=== PATIENT | female | born 1945 | race Caucasian/White ===

== ENCOUNTER → 2017-03-03 | Outpatient (CLI) | payer MEDICARE ==
[~2017-03-03] MED LIST: B COMPLETE1 EACH PO; CALCIUM + D3 E1 EACH PO; METAMUCIL SF P3.4 GM PO; METOPROLOL TART25 MG PO; NORCO 5-325 TA1 EACH PO; PRILOSEC DPS20 MG PO; PROBIOTIC1 EAC1 PO; PROLIA60 MG/ML PO; THERA1 EACH PO; TYLENOL DPS325 MG PO; XANAX DPS0.5 MG PO; ZOCOR DPS40 MG PO
== END | disposition home or self-care (01) ==
LOC: PTH.S 08:34
DX: Z01.818 Encounter for other preprocedural examination (principal)

== ENCOUNTER 2017-03-08 07:10 | Inpatient (IN) | payer MEDICARE ==
[~2017-03-08] VITALS: Ht 152.4 cm; Wt 62.9 kg
--- NOTE | ~2017-03-08 | OR ---
ADMIT: 03/08/2017 RM/LOC: 312 [facility] MR#: [id number] [facility]#: [id number] [address] [address] JAMILA DAILY [address] [place] [address] Operative/Delivery Room Report SEX: F AGE: 71 : 1945 SURGERY DATE: 03/08/2017 SURGEON: Clint Welch MD PREOPERATIVE DIAGNOSIS: Right colon cancer. POSTOPERATIVE DIAGNOSIS: Right colon cancer. FINAL PATHOLOGY: Pending. PROCEDURE: Laparoscopic right hemicolectomy. POCKET FLAP CREASING MACHINE OPERATOR: DANNA Patrick. ANESTHESIA: General endotracheal tube anesthesia. ESTIMATED BLOOD LOSS: 100 mL or less. INDICATION FOR PROCEDURE: Please see H and P. DESCRIPTION OF PROCEDURE: After the risks, benefits, possible complications, and the alternatives have been explained, and informed consent had been obtained, the patient was taken back to the operating room. Underwent general endotracheal tube anesthesia, and the surgical field was prepped and draped in a sterile manner. A supraumbilical incision was made. The Veress needle was inserted. The abdomen was insufflated with CO2. Once there was adequate insufflation, a 5 mm port was placed. The camera was placed through this port site. Under direct visualization, I placed a 5 mm lower midline and another upper midline port and a 12 mm left-sided port. Slowly raised up the ileocolic vessel, made a window there, identified the duodenum. Originally I did not take that. I went in, a lot of omentum, just kind of hard to get that , but I was stuck up kind to the liver from her previous lap aarti but I was able to free that up around the hepatic flexure. I took that down and went then down below and started working the cecum up. The small bowel was kind of stuck from previous appendectomy down into the right lower quadrant, I had to free that up kind of sharply. Once I had that freed up, her mesentery was just kind of friable, it wanted to tear just raising it, but had a nice window. I identified duodenum nicely. Took the ileocolic vessel with an Endo AUDI stapler. Once I felt I had everything adequately freed up from the lateral attachments for the right colon, came to the midline and medially enough stuff freed up. I went ahead and grasped it. I made a midline incision between my upper two 5 mm ports. Wound protector was placed. Brought the specimen up, and just in that same process just bringing it up into the incision without significant tension, it wanted to tear the mesentery there and so I clamped, divided, and ligated some of the small bowel mesentery. I went back a little further than I had planned, but it had a good palpable pulse coming up there. Divided the small bowel with the AUDI stapler 75. I chose an area in the transverse colon as well. I could feel a nice palpable pulse coming up the colon and divided some mesentery between clamps, tied, and then AUDI across the ADMIT: 03/08/2017 RM/LOC: 312 [facility] MR#: [id number] [address] [place] [id number] [place] [address] Operative/Delivery Room Report SEX: F AGE: 71 : 1945 transverse colon. Then created a [id number] stapled anastomosis of the distal small bowel to the transverse colon. Closed it off with a AUDI 75 stapler. Changed gloves, reinforced the crotch using the anastomosis and the suture lines with some 3-0 silk sutures, returned it to the abdominal cavity. We inspected things there with my open incision, looked around. I did not see a significant amount of blood or anything. I closed the fascia with a running 1 PDS, one superiorly and one inferiorly tying in the middle. Re-insufflated the abdomen and inspected. Suctioned and cleaned out some old blood. Irrigated. Did not see any signs of any other significant bleeding. There was a little more oozing in some spots, but I washed it for quite a while. I did not see anything that I was worried about welling up anywhere as far as blood. I injected 0.5% Marcaine for pain control. I closed the fascia of left-sided port with an 0-Polysorb suture using the suture passer. All the other ports were removed. The skin was all closed with freeman. She tolerated it well. She was extubated and taken to recovery room in stable and satisfactory condition. Clint Welch MD/ abiel JOB #: [id number] CC: Clint Welch, Attending Physician Caity Sheppard, Family Physician . [facility]
--- NOTE | ~2017-03-08 | ECH ---
Transthoracic Echocardiography Report (TTE) Demographics Patient Name JAMILA DAILY Date of Study 03/10/2017 Patient Number [id number] Visit Number [id number] Date of 1945 Room Number 420 Accession Number [id number] Gender Female Age 71 year(s) Referring King Favio Carbajal MD Wigs Salesperson Devika Bustos [facility] Physician Physician Interpreting Mary Grace Freitas [employer] Manager Physician MD Supervising Ordering Physician King Favio Carbajal MD, MD/P Nurse Stress Analyst [employer] Conclusions Summary Technically fair exam. The estimated left ventricular ejection fraction is 60%. Normal chamber sizes and function. Procedure Type of Study TTE procedure:Echo Complete SF. Procedure Date Date: 03/10/2017 Start: 03:31 PM Technical Quality: Fair due to poor acoustical window. Indications:Tachycardia. Appropriate Use Criteria: 9 Height: 60 inches Weight: 146 pounds BSA: 1.63 m Rhythm: Within normal limits HR: 83 bpm BP: 166/76 mmHg M-Mode/2D Measurements LV Diastolic Dimension: 4.41 cm LV Systolic Dimension: 3.72 cm LV Septum Diastolic: 0.85 cm LV PW Diastolic: 0.85 cm AO Root Dimension: 2.96 cm Cardiac Output: 2.69 l/min LA Dimension: 2.98 cm Cardiac Index: 1.65 l/min*m LA volume index: 27 ml/m LVOT: 1.57 cm RV Base: 2.3 cm LVOT VTI: 16.76 cm RV Mid: 1.5 cm LV Stroke volume: 32.43 ml RV Length: 6 cm LV Stroke volume index: 19.9 ml/m Doppler Measurements AV Mean Gradient: 3.93 mmHg MV Peak E-Wave: 0.67 m/s LVOT Peak Velocity: 0.81 m/s MV Peak A-Wave: 1.04 m/s AV Area (Continuity):1.21 cm MV P1/2t: 66.1 msec TR Velocity:1.36 m/s TR Gradient:7.42 mmHg MV Deceleration Time: 223.8 msec Estimated RAP:3 mmHg MV Area (PHT): 3.33 cm Estimated RVSP: 10 mmHg PV Peak Velocity: 0.91 m/s PV Peak Gradient: 3.3 mmHg Estimated PASP: 10.42 mmHg RA Area: 9.68 cm Findings Left Ventricle The left ventricle is normal in size . Right Ventricle Normal right ventricle structure and function. Left Atrium Normal left atrial size. Right Atrium Normal right atrial size. Mitral Valve Normal mitral valve structure and function. Aortic Valve The aortic valve was not well imaged. Tricuspid Valve Normal tricuspid valve structure and function. Trivial tricuspid regurgitation by color Doppler. Pulmonic Valve The pulmonic valve is not well visualized. Pericardial Effusion No evidence of pericardial effusion. Miscellaneous Visualized portions of the aortic root and ascending aorta appear normal in size. Pleural Effusion No evidence of pleural effusion. Signature
[2017-03-11] MEDS ORDERED: PROBIOTIC1 EAC1 PO (21:01)
[2017-03-11] MEDS ORDERED: ZOCOR DPS40 MG PO (21:01)
[2017-03-11] MEDS ORDERED: XANAX DPS0.5 MG PO (21:01)
[2017-03-11] MEDS ORDERED: CALCIUM + D3 E1 EACH PO (21:02)
[2017-03-11] MEDS ORDERED: B COMPLETE1 EACH PO (21:02)
[2017-03-11] MEDS ORDERED: PROLIA60 MG/ML PO (21:02)
[2017-03-11] MEDS ORDERED: TYLENOL DPS325 MG PO (21:03)
[2017-03-11] MEDS ORDERED: PRILOSEC DPS20 MG PO (21:03)
[2017-03-11] MEDS ORDERED: METOPROLOL TART25 MG PO (21:03)
[2017-03-11] MEDS ORDERED: THERA1 EACH PO (21:03)
[2017-03-11] MEDS ORDERED: NORCO 5-325 TA1 EACH PO (21:04)
[2017-03-11] MEDS ORDERED: METAMUCIL SF P3.4 GM PO (21:04)
--- NOTE | 2017-03-14 15:38 | CO ---
ADMIT: 03/08/2017 RM/LOC: 420 [facility] MR#: [id number] [facility]#: [id number] [address] [facility] [address] [place] [id number] JAMILA DAILY [address] [place] [id number] Consultation SEX: F AGE: 71 : 1945 DATE OF CONSULTATION: 03/10/2017 ATTENDING PHYSICIAN: Clint Welch CONSULTING PHYSICIAN: Favio Edwards MD CHIEF COMPLAINT: Tachycardia. HISTORY OF PRESENT ILLNESS: The patient was admitted to the hospital on 03/07/2017, for laparoscopic right hemicolectomy due to invasive adenocarcinoma. She underwent surgery and it was reportedly uncomplicated. Yesterday evening, she reports that she had an episode of nausea and vomiting and then immediately felt her heart racing. Telemetry at that time was irregular with concern for atrial fibrillation and a 12-lead EKG was obtained. The patient denies that she had any chest pain or shortness of breath and is feeling well this morning. She is now back in sinus rhythm this morning. She was given 5 mg of IV metoprolol at the time of the episode. She denies any known cardiac history. She is a former smoker, having quit in just the last few weeks. PAST MEDICAL HISTORY: Adenocarcinoma of the right colon status post hemicolectomy on 03/07/2017, gastroesophageal reflux disease, osteoporosis, hyperlipidemia. MEDICATIONS: 1. Simvastatin 40 mg p.o. daily. 2. Omeprazole. 3. Xanax. 4. Vitamin B12. 5. Daily multivitamin. 6. Citrucel. ALLERGIES: NO KNOWN MEDICAL ALLERGIES. SOCIAL HISTORY: The patient endorses previous tobacco use until the last few weeks and occasional alcohol use. FAMILY HISTORY: She reports her mother of cardiovascular disease when she was in her 80s and her father had cancer. REVIEW OF SYSTEMS: GENERAL: Denies fatigue, fever, chills, sweats, rash, or weight loss. EYES: Denies double vision, blurred vision, cataracts, or glaucoma. ENT: Denies hearing loss or problems with nose, mouth or throat. PULMONARY: Denies cough, sputum production, asthma, emphysema or bronchitis. Denies snoring loudly, wakefulness at night, or fatigue upon awakening. GASTROINTESTINAL: Denies difficulty swallowing. No change in bowel habits. Denies dark or bloody stools. No history of ulcers, hiatal hernia, or gallbladder or liver disease. She has a history of gastroesophageal reflux ADMIT: 03/08/2017 RM/LOC: 420 [facility] MR#: [id number] [address] [address] [place] [address] Consultation SEX: F AGE: 71 : 1945 disease and was recently found to have invasive adenocarcinoma of the colon. GENITOURINARY: Denies dysuria, hematuria, nocturia, urinary tract infection, or kidney stones. Denies history of renal insufficiency or failure. MUSCULOSKELETAL: Denies history of arthritis or gout. Denies muscle or joint pains. ENDOCRINE: Denies history of thyroid dysfunction or diabetes. HEMATOLOGIC: Denies history of anemia, easy bruising, or cancer. NEUROLOGIC: Denies chronic headaches, dizziness, syncope, stroke, seizures or numbness or tingling. PSYCHIATRIC: Denies history of mental illness or feelings of depression. PHYSICAL EXAMINATION: VITAL SIGNS: Heart rate 59 to 147, blood pressure 150/79 to 169/79, respiratory rate 18, SpO2 90% on room air. SKIN: [place], warm and dry. EYES: Sclerae clear. No xanthelasmas. ENT: Oral mucosa is pink and moist. No jugular venous distention or carotid bruits. CHEST: Respirations are even and unlabored. Lungs are clear to auscultation. HEART: Regular rate and rhythm. Normal S1, S2. No murmurs, rubs or gallops. ABDOMEN: Soft and nontender. MUSCULOSKELETAL: Gait is normal. EXTREMITIES: Peripheral pulses palpable. No clubbing, cyanosis or edema. PSYCHIATRIC: Alert and oriented. Mood and affect are appropriate. LABORATORY DATA: WBC 12.1, HGB 12.0, and PLT 215. Creatinine 0.6, potassium 3.5. EKG with SVT at 109 beats per minute. ASSESSMENT: 1. Supraventricular tachycardia with concern for possible atrial fibrillation. 2. Postop day 3, status post right hemicolectomy secondary to invasive adenocarcinoma. PLAN: Her rhythm is consistent with a supraventricular tachycardia, could be atrial fibrillation, but would be a very brief episode. Would not recommend anticoagulation at this time unless longer episodes of atrial fibrillation are noted. We will check an echocardiogram to make sure the heart structure is normal and we will prescribe low-dose oral metoprolol. Lisa Mar MD Resident / Favio Edwards MD / abiel JOB #: [id number] CC: Clint Welch, Attending Physician Caity Sheppard, Family Physician
--- NOTE | 2017-03-25 11:47 | HP ---
ADMIT: 03/08/2017 RM/LOC: [facility] MR#: [id number] [address] [address] JAMILA DAILY [address] [place] [address] Pre-OP History and Physical SEX: F AGE: 71 : 1945 DATE OF SERVICE: 03/07/2017 PREOPERATIVE DIAGNOSIS: Invasive adenocarcinoma of the right colon. PLAN: Laparoscopic right hemicolectomy. HISTORY OF PRESENT ILLNESS: This patient is a pleasant 71-year-old female, who up in [facility], I did a colonoscopy on 02/21/2017 that showed an invasive adenocarcinoma of the proximal right colon cecal area. The plan at this time is to do a laparoscopic right hemicolectomy, which I have discussed with her, what it entails, the risks, benefits, possible complications, and alternatives. She understands and wishes to proceed. PAST MEDICAL HISTORY: Significant for the above as well as some GERD, osteoporosis, previous history of colon polyps, and hyperlipidemia. MEDICATIONS: She takes: 1. Simvastatin 40 mg a day. 2. Xanax 0.5 mg one or two a day. 3. Citracal. 4. Vitamin B12. 5. Omeprazole 20 mg as needed. 6. Probiotic once a day. ALLERGIES: SHE LISTS NO SIGNIFICANT MEDICAL ALLERGIES. SOCIAL HISTORY: She denies any significant tobacco, alcohol, or illicit drugs. FAMILY HISTORY: She lists no family history. PAST SURGICAL HISTORY: She has had previous appendectomy, cholecystectomy, colonoscopy, and hysterectomy. REVIEW OF SYSTEMS: Positive for anxiety, some abdominal pain, diarrhea, or heartburn. She lists no chest pain or palpitations. No headaches or ADMIT: 03/08/2017 RM/LOC: [facility] MR#: [id number] [address] [place] [address], [place] [address] JAMILA DAILY[address] [place] [address] Pre-OP History and Physical SEX: F AGE: 71 : 1945 dizziness. No coughing or wheezing. No loss of weight, fevers, or chills. PHYSICAL EXAMINATION: GENERAL: She is alert. She is oriented. She is in no significant distress. HEENT: Her sclerae are nonicteric. Extraocular muscles are intact. CHEST: Clear anteriorly. HEART: Regular rate and rhythm. ABDOMEN: Benign. Soft. Positive bowel sounds. No organomegaly. No mass detected. EXTREMITIES: Without clubbing, cyanosis, or edema. ASSESSMENT AND PLAN: As above. Clint Welch MD/ abiel JOB #: [id number] CC: Clint Welch, Attending Physician Caity Sheppard, Family Physician
--- NOTE | 2017-04-26 09:37 | DS ---
ADMIT: 03/08/2017 RM/LOC: 420 [facility] MR#: [id number] [facility]#: [id number] [address] [facility] [address] [place], [place] [address] JAMILA DAILY [address] [place] [address] General Discharge Summary SEX: F AGE: 71 : 1945 ADMISSION DATE: 03/08/2017 DISCHARGE DATE: 03/11/2017 ADMITTING DIAGNOSIS: Right colon cancer. DISMISSAL DIAGNOSIS: 1. Nonmetastatic adenocarcinoma of the right colon. 2. GERD (gastroesophageal reflux disease). 3. Osteoporosis. 4. History of colon polyps. 5. Hyperlipidemia. PROCEDURES: Laparoscopic right hemicolectomy. HOSPITAL COURSE: The patient was an inpatient admit with routine med/surg orders. After surgery, the patient transferred to the floor without any complications. She was given a morphine HEALTH ASSOCIATE for pain control and was started on sips of water. Overall, the patient recovered well while in the hospital. She was not using her HEALTH ASSOCIATE, so she switched to an IV push. She was changed to tele status. It was noted while she was in the hospital she developed some atrial fibrillation. Pulse was noted somewhere between the 140s to 160s, so Cardiology was consulted and the patient was started on Lopressor. A Mckeon that was placed intraoperatively was removed postop day number 2. Cardiology also put her on metoprolol 25 mg b.i.d. p.o. Her rate was controlled, her pain was controlled, and she was tolerating an advanced diet. She also had normal return of her bowel function, and the remainder of her vitals were normal. Lab work normalized, and the patient was deemed stable to discharge home. She discharged to home on 03/11/2017. DISCHARGE INSTRUCTIONS: 1. Follow up with Dr. Welch in [place] in 2 weeks. 2. Okay to shower. 3. No lifting greater than 20 pounds for 4 weeks. 4. Follow up with Dr. Richar Leos in 2-3 weeks with Oncology. 5. Resume high-fiber diet. DISCHARGE MEDICATION LIST: ADMIT: 03/08/2017 RM/LOC: 420 [facility] MR#: [id number] [address] [address] JAMILA DAILY [address] [place] [address] General Discharge Summary SEX: F AGE: 71 : 1945 1. Simvastatin 40 mg daily. 2. Alprazolam 0.5 mg t.i.d. p.r.n. 3. Probiotic daily. 4. Calcium plus D3 500 mg b.i.d. 5. Vitamin B12 1000 mcg daily. 6. Prolia 60 mg q.6 months. 7. Omeprazole 20 mg daily p.r.n. 8. Multivitamin daily. 9. Lopressor 25 mg b.i.d. 10.Tylenol 325 mg 2 tabs q.4h p.r.n. 11.Lortab 5/325, 1-2 tabs q.4-6 hours p.r.n. pain. 12.Metamucil daily. DANNA Patrick / Clint Welch MD / jessica JOB #: [id number] CC: Clint Welch MD, Attending Physician DANNA Whaley, Family Physician
== END 2017-03-11 14:17 | disposition home or self-care (01) | DRG 330 ==
LOC: 4PCU 07:10 → 6PED 07:10 → 3ICU 07:10 → WOR 07:10 → 5MS 13:25 → 3ICU 16:00 → 6PED 03-09 10:02 → 4PCU 03-10 00:32
PROVIDERS: ADMIT Surgery
PROC: 0DTF0ZZ Resection of Right Large Intestine, Open Approach (ICD-10-PCS; principal; 2017-03-08)
DX: C18.2 Malignant neoplasm of ascending colon (principal); I47.1 Supraventricular tachycardia; E78.5 Hyperlipidemia, unspecified; K21.9 Gastro-esophageal reflux disease without esophagitis; M81.0 Age-related osteoporosis without current pathological fracture; F41.9 Anxiety disorder, unspecified; Z86.010 Personal history of colon polyps; Z87.891 Personal history of nicotine dependence